=== PATIENT | male | born 2005 | race Caucasian/White ===

== ENCOUNTER 2025-01-30 08:47 | Outpatient (REF) | payer OTHER, SELFPAY ==
[2025-01-30 13:22] LABS: MANUAL DIFF FLAG NO
[2025-01-30 13:26] LABS: Appearance Urine Turbid; Glucose Urine UA Negative (Negative); PH 5.5 (5.0-9.0); Specific Gravity - Urine >= 1.030 (1.005-1.025)
[2025-01-30 13:39] LABS: Hematocrit 40.7 % (42.0-52.0); Hemoglobin 13.8 g/dl (14.0-18.0); Imm Gran Abs Auto 0.02 X10*3/uL (0.00-0.03); Imm Gran Pct Auto 0.3 % (0.0-0.4); Lymphocytes Absolute Auto 2.6 X10*3/uL (1.2-4.9); Mean Corpuscular HGB Conc 33.9 g/dl (31.0-36.0); Mean Corpuscular Hemoglobin 29.0 pg (27.0-33.0); Mean Corpuscular Volume 85.5 fL (80.0-98.0); NRBC Abs Auto 0.000 X10*3/uL (0.0-0.012); NRBC Pct Auto 0.0 /100WBC (0.0-0.2); Platelet Count 231 X10*3/uL (160-400); Red Blood Count 4.76 X10*6/uL (4.60-5.80); White Blood Count 7.1 X10*3/uL (4.8-10.8)
[2025-01-30 14:11] LABS: Alanine Aminotransferase 22 U/L (0-40); Albumin Level 4.2 g/dL (3.5-5.0); Alkaline Phosphatase 51 U/L (39-117); Anion Gap 8 (12-20); Aspartate Amino Transferase 22 U/L (5-37); Blood Urea Nitrogen 25 mg/dL (9-16); Calcium 9.0 mg/dL (8.4-10.2); Carbon Dioxide 28 mmol/L (22-29); Chloride 108 mmol/L (96-108); Cholesterol 116 mg/dL (<200); Estimated Glomerular Filt Rate > 60; HDL Cholesterol 41 mg/dL (>40); Potassium 4.0 mmol/L (3.3-5.1); Sodium 140 mmol/L (135-145); Total Protein 6.2 g/dL (6.5-8.0); Triglycerides 68 mg/dL (<150)
[2025-01-30 15:01] LABS: Folate 8.4 ng/mL (> or = 4.0); Vitamin B12 569 pg/mL (200-900)
[2025-01-30 15:26] LABS: CT PCR Urine NOT DETECTED (Not Detect.); NG PCR Urine NOT DETECTED (Not Detect.)
[2025-01-31 04:59] LABS: HBS Num1 > 1000.00 mIU/mL (0-7.99); HBsAGNum1 0.37 S/CO (0.00-0.99); HIV Num 1 0.05 S/CO (0.00-0.99); Hepatitis B Surface Antigen Negative (Negative); ~Hepatitis B Surface Antibody REACTIVE (Nonreactive)
[2025-01-31 05:57] LABS: Syphilis Screen Nonreactive (Nonreactive)
[2025-02-04 06:59] LABS: VITAMIN D (1,25 OH) D3 24 pg/mL; Vit D (1,25-Dihydroxy) Total 24 pg/mL (18-72); Vitamin D (1,25 OH) D2 <8 pg/mL
== END 2025-01-30 08:48 | disposition home or self-care (01) ==
LOC: HO.HKASLDS 08:47
PROVIDERS: PCP Student in an Organized Health Care Education/Training Program; Visit Provider Student in an Organized Health Care Education/Training Program
DX: B07.9 Viral wart, unspecified (principal); L84 Corns and callosities; F84.0 Autistic disorder; F81.9 Developmental disorder of scholastic skills, unspecified; F12.10 Cannabis abuse, uncomplicated; Z13.31 Encounter for screening for depression; Z13.39 Encounter for screening examination for other mental health and behavioral disorders; Z13.9 Encounter for screening, unspecified
CPT/HCPCS: 80053; 80061; 81003; 82607; 82652; 82746; 83036; 85025; 86706; 86780; 87340; 87389; 87491; 87591; 96127; 99202

== ENCOUNTER 2025-01-30 08:47 | Outpatient (AMB) | payer OTHER, SELFPAY ==
--- NOTE | 2025-01-30 09:00 | A.OFFPC_ITS ---
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 Intake Note: new patient presents with warts [employer] Agent Required: No Accompanied by: Self / Same As Patient Allergies No Known Allergies Allergy (Verified 01/30/25 09:03) Medication List - Last Reconciled 01/30/25 by Alonzo Dickey MD carbamide peroxide 6.5% (Debrox) 5 drps otic (ears) Q12H 4 days Tobacco use date assessed: 01/30/25 Dental Screening Dental Screen Date: 01/30/25 Did you have a dental visit in the last 12 months?: Yes Did you have a dental problem in the last 6 months where you did not have access to dental care?: No Was dental information given to patient?: Patient has dentist HPI HPI Comments History of Present Illness Details History of Present Illness The patient is a 19 year old male presenting for evaluation of painful plantar warts and to obtain a referral to a tool maintenance worker. Plantar Warts: The patient reports having multiple warts on his feet, with the first two appearing approximately 2-3 years ago. He currently has about five or six warts in total, which cause significant pain and affect his ability to work. He previously visited an urgent care facility to get a referral to a tool maintenance worker but was advised to see a primary care physician for the recommendation. Autism and Learning Disability: The patient has a history of diagnosed autism and learning disabilities, though he is unsure of the specific diagnoses. In the past, specifically during elementary school, he saw a therapist and took medication for these conditions. He stopped the medication years ago because it caused somnolence. He does not currently receive any therapy or take medication for these conditions. Cannabis Use: The patient reports smoking marijuana since he was 14 years old. He previously smoked heavily but has since reduced his use to approximately one blunt's worth of marijuana per day. He denies any alcohol or other illicit drug use. Surgical History: - Denies any history of surgeries. Medications: - The patient denies taking any current medications. Social History: - Employment: He works in [employer] at [employer]. - Substance Use: He has smoked marijuana since age 14 and currently smokes about a blunt's worth per day, which is a reduction from his previous use. - Substance Use: Denies any alcohol or o ther drug use. - Sexual History: He is sexually active and reports using protection during intercourse. Past Medical History - Formally diagnosed with autism and vanessa rning disabilities, specifics unknown. - Received therapy for these conditions in elementary school. - Previously took medication for his con ditions but discontinued it due to somnolence. - Denies any history of hospitalizations . Health Maintenance - Establishing primary care. - Baseline laboratory screening ordered, including CBC, CMP, HbA1c, Hepatitis B serology, vitamin B12, folate, and vitamin D. - Patient is sexually active and uses pr otection; consented to screening for gonorrhea and chlamydia. [facility] Medical History (Updated 01/30/25 @ 09:26 by Alonzo Dickey MD) Cannabis abuse Learning disability Corns and callosities Warts of foot Autism Family History (Updated 01/30/25 @ 09:05 by Maulik Holloway CMA) Father Substance abuse Maternal Grandmother Hypertension Social History (Updated 01/30/25 @ 09:06 by Maulik Holloway CMA) Housing: House Alcohol intake: never Patient Tobacco Use Status: Never used Tobacco e-Cigarette/Vaping Use: Never Used Second Hand Smoke Exposure: No Substance Use Type: Marijuana service: No Current occupational status: unemployed Cognitive needs: No Hearing needs: No Vision needs: No Questionnaire PHQ-9 Over the last 2 weeks, how often have you been bothered by any of the following problems? 1. Little interest or pleasure in doing things: several days 2. Feeling down, depressed, or hopeless: not at all 3. Trouble falling or staying asleep, or sleeping too much: not at all 4. Feeling tired or having little energy: several days 5. Poor appetite or overeating: not at all 6. Feeling bad about yourself - or that you are a failure or have let yourself or your family down: not at all 7. Trouble concentrating on things, such as reading the newspaper or watching television: not at all 8. Moving or speaking so slowly that other people could have noticed. Or the opposite - being so fidgety or restless that you have been moving around a lot more than usual: not at all 9. Thoughts that you would be better off or of hurting yourself in some way: not at all Total score: 2 Depression Screening Interpretation: Negative Depression Screening Done: Yes 03575 - PHQ-9 Billing: Yes Source: Developed by Drs. Reyes Jnenings, Anand Dunn and colleagues, with an educational brittnee from [employer]. Thrive Questionnaire Date Thrive assessed: 01/30/25 I am a: Patient What is your living situation today?: I have a steady place to live Within the past 12 months, did the food you bought not last and you didn't have the money to get more?: Sometimes True Within the past 12 months, did you worry whether your food would run out before you got money to buy more?: Sometimes True Do you have trouble paying for medicines?: Yes Do you have trouble getting transportation to medical appointments?: Yes Do you have trouble paying your heating and electricity bill?: No Do you have trouble taking care of your child, family member or friend?: Yes Are you currently unemployed and looking for a job?: No Are you interested in more education?: Yes Please select the resources that you would like help with: Housing/Correction, Food, Paying for medicine, Transportation and Education Currently or been in a relationship where the following occur: I choose not to answer THRIVE Score: 3 AUDIT C Alcohol Use Questionnaire (AUDIT-C) 1. How often do you have a drink containing alcohol?: Never Total Score: 0 KINJAL-7 AMB Questionnaire KINJAL-7 Date KINJAL - 7 assessed: 01/30/25 Feeling nervous, anxious, or on edge: 1 = Several days Not being able to stop or control worryin = Several days Worrying too much about different things: 1 = Several days Trouble relaxin = Several days Being so restless that it is hard to sit still: 0 = Not at all Becoming easily annoyed or irritable: 1 = Several days Feeling afraid as if something awful might happen: 0 = Not at all Total KINJAL-7 score (0-4 normal; 5-9 mild; 10-14 moderate; 15-21 severe): 5 Source: Developed by Drs. Reyes Jennings, Anand Dunn and colleagues, with an educational brittnee from [employer]. KINJAL-7 Assessment Billing KINJAL-7 Assessment Tool: KINJAL-7 Assessment 61351 Review of Systems Narrative Review of Systems - Integumentary: Reports multiple painful warts on both feet for the past 2-3 years. - Constitutional: Reports sleeping about six hours per night. - Neurological: Reports a history of learning disabilities and autism. - Genitourinary: Denies issues with urination. - Gastrointestinal: Denies issues with bowel movements. 10-point ROS reviewed and negative except as noted in HPI Physical exam (Primary Care) Vital Signs: Last Vital Signs Temp 98.2 F 01/30/25 09:06 Pulse 59 01/30/25 09:06 Resp 18 01/30/25 09:06 BP 109/66 01/30/25 09:06 Pulse Ox 99 01/30/25 09:06 Oxygen Delivery Method Room Air 01/30/25 09:06 BMI result Body Mass Index 26.3 Tobacco/Smoking Status: Tobacco use Status Tobacco use date assessed 01/30/25 01/30/25 09:08 Patient Tobacco Use Status Never used Tobacco 01/30/25 09:08 e-Cigarette/Vaping Use Never Used 01/30/25 09:08 PHQ-9: PHQ-9 Score PHQ-9: Total score 2 01/30/25 09:02 Depression Screening Interpretation: Negative Thrive Assessment: Date of Thrive Assessment Date Thrive assessed 01/30/25 01/30/25 09:02 Currently or been in a relationship where the following occur: I choose not to answer Narrative Physical Exam General: Well-appearing, in no acute distress. Vital signs: Within normal limits. HEENT: Normocephalic, atraumatic. PERRLA, EOMI. Conjunctiva clear, sclera anicteric. Oropharynx clear, mucous membranes moist. TMs obscured by ear wax bilaterally. Neck: Supple, no lymphadenopathy, no thyromegaly, no JVD or carotid bruits. Cardiovascular: RRR, normal S1/S2, no murmurs, rubs, or gallops. Peripheral pulses 2+ and symmetric. No edema. Respiratory: Lungs clear to auscultation bilaterally, no wheezes, rales, or rhonchi. Normal effort. Abdomen: Soft, non-tender, non-distended. Normoactive bowel sounds. No hepatosplenomegaly, no masses. MSK: Full range of motion, no joint swelling or deformity. Normal gait. Skin: Warm, dry, intact. No rashes, lesions, or pallor. Warts present on both feet, three on the left foot and two on the right foot. Neuro: Alert and oriented x3. Cranial nerves II-XII intact. Strength 5/5 throughout. Sensation intact. Reflexes 2+ symmetric. Normal coordination and gait. Psych: Appropriate mood and affect. Normal judgment and insight. Diagnosed with autism and learning disabilities. Coding Level of Care Code New Pt Level 4 (00041) Diagnoses Warts of foot B07.9 Corns and callosities L84 Autism F84.0 Learning disability F81.9 Cannabis abuse F12.10 Additional Codes KINJAL-7 Assessment Billing - KINJAL-7 Assessment Tool: KINJAL-7 Assessment 08854 ([id number]) PHQ-9 - 55761 - PHQ-9 Billing: Yes ([id number]) Assessment & Plan Assessment & Plan (1) Warts of foot: Code(s): B07.9 - Viral wart, unspecified Category: Medical (2) Corns and callosities: Code(s): L84 - Corns and callosities Category: Medical (3) Autism: Code(s): F84.0 - Autistic disorder Category: Medical (4) Learning disability: Code(s): F81.9 - Developmental disorder of scholastic skills, unspecified Category: Medical (5) Cannabis abuse: Code(s): F12.10 - Cannabis abuse, uncomplicated Category: Medical Plan Consent The patient verbally consented to laboratory testing, including a complete blood count, kidney and liver function tests, hemoglobin A1c, hepatitis B serology, vitamin B12, folate, vitamin D, and a sexually transmitted infection panel for gonorrhea and chlamydia. Patient was informed and verbally consented to the use of an ambient scribe for clinic note documentation during this visit. Plan 1. Plantar Warts - The patient presents with painful plantar warts on both feet that are impacting his work. - A referral will be placed to Podiatry for further evaluation and management of the warts. - The patient was advised that the referral office will contact him to schedule an appointment and to call them if he does not hear back within 1-2 weeks. 2. Cerumen Impaction, Bilateral - The patient was found to have cerumen impaction in both ears, obscuring the tympanic membranes. - A prescription for ear drops was provided. - The patient was instructed to instill five drops in each ear daily for five days before his next appointment to facilitate cerumen removal. 3. Health Maintenance/Establishment Of Care - As this is an initial visit to establish care, baseline laboratory studies are being ordered. - Labs include a complete blood count, complete metabolic panel, hemoglobin A1c, hepatitis B serology, vitamin B12, folate, and vitamin D. - The patient consented to a sexually transmitted infection panel, including testing for gonorrhea and chlamydia. - A follow-up visit is scheduled in two weeks to review results. 4. Autism And Learning Disability - The patient has a history of these diagnoses but does not have access to his records. - He was instructed to complete a release of information form to allow the [facility] to request his past medical records. Discussion Notes I discussed my findings and plan with the patient. For his primary concern of painful foot warts, I explained that I would refer him to our podiatry department for management, and he was agreeable to this plan. I informed him about the cerumen impaction in both ears and prescribed drops, instructing him to use them for five days before his follow-up appointment to facilitate cleaning. I explained that since this is his first visit, I would be ordering a set of baseline blood tests to check his overall health, including blood counts, kidney and liver function, blood sugar, and vitamin levels. We also discussed screening for sexually transmitted infections, and he consented to testing for gonorrhea and chlamydia. I advised him to sign a release of information form so we can obtain his past medical records regarding his diagnoses of autism and learning disabilities. He will follow up in two weeks to review all results and check on the status of his podiatry referral. Patient Instructions - I have placed a referral for you to see a foot doctor (tool maintenance worker) for the painful warts on your feet. Their office will call you to schedule an appointment. If you do not hear from them in 1-2 weeks, please call our office. - You have wax buildup in both ears. I have sent a prescription for ear drops to your pharmacy. Please put five drops in each ear every day for five days before your next appointment. - We are drawing blood today for a number of screening tests to check your overall health. - Please fill out the form at the [facility] so we can request your old medical records. - Please schedule a follow-up appointment to see me in two weeks to go over your test results. Medical Decision Making The patient is a 19-year-old male establishing care, presenting with a chief complaint of chronic, painful plantar warts that interfere with his occupation. While cryotherapy is an option in the primary care setting, the number and chronicity of the lesions make a referral to podiatry for comprehensive management and potential alternative treatments the most appropriate course of action. As this is an initial visit to establish care, comprehensive health screening was performed. Baseline labs including CBC, CMP, HbA1c, and vitamin levels were ordered to screen for common metabolic, hematologic, and nutritional abno rmalities. Given his reported sexual activity, STI screening for gonorrhea and chlamydia was offered and accepted. Physical exam revealed bilateral cerumen impaction, for which cerumenolytic drops were prescribed to facilitate removal at the next visit. The patient's reported history of autism and learning disabilities warrants further investigation; obtaining prior medical records is the first step in understanding his history and needs. The plan is to follow up in two weeks to review all results, assess the efficacy of the ear drops, and ensure a podiatry appointment has been scheduled. Total Time Statement 30 min Total time spent caring for the patient today includes pre-visit chart review, documentation, review of laboratory and diagnostic imaging results, medication reconciliation, medically necessary evaluation, counseling on diagnoses, care coordination, ordering appropriate tests and medications, review of tests performed by other providers, reporting test results to the patient, and communication with other healthcare providers. Orders: Orders Complete Blood Count Auto Diff Today Z13.9 - Encounter for screening, unspecified CT NG by PCR Urine Today Z13.9 - Encounter for screening, unspecified UA CC w/rflx Micro + Cult Today Z13.9 - Encounter for screening, unspecified Lipid Panel Today Z13.9 - Encounter for screening, unspecified Hepatitis B Surface Antibody Today Z13.9 - Encounter for screening, unspecified Hepatitis B Surface Antigen Today Z13.9 - Encounter for screening, unspecified Syphilis Screen Today Z13.9 - Encounter for screening, unspecified Comprehensive Met. Panel Today Z13.9 - Encounter for screening, unspecified HIV Ab/Ag Today Z13.9 - Encounter for screening, unspecified Vitamin B12 and Folate Today Z13.9 - Encounter for screening, unspecified Hemoglobin A1c Today Z13.9 - Encounter for screening, unspecified Vitamin D 1,25 dihydroxy Today Z13.9 - Encounter for screening, unspecified Referrals Podiatry Referral B07.9 - Viral wart, unspecified, L84 - Corns and callosities Medications: New carbamide peroxide 6.5% (Debrox) 5 drps otic (ears) Q12H 15 mL 0RF 4 days
[2025-01-30 09:06] VITALS: BP 109/66; PULSE 59; RESP 18; TEMP 36.8; O2SAT 99; BMI 26.3
== END 2025-01-30 09:24 | disposition home or self-care (01) ==
PROVIDERS: PCP Family Medicine; Visit Provider Student in an Organized Health Care Education/Training Program
DX: B07.0 Plantar wart (principal); H61.23 Impacted cerumen, bilateral; F84.0 Autistic disorder; F81.9 Developmental disorder of scholastic skills, unspecified; F12.10 Cannabis abuse, uncomplicated